=== PATIENT | female | born 1970 | race Caucasian/White ===

== ENCOUNTER 2017-04-11 17:52 | Inpatient (IN) | payer OTHER ==
[~2017-04-11] VITALS: Ht 170.2 cm; Wt 95.2 kg
--- NOTE | 2017-04-11 18:29 | DIAGNOSTIC IMAGING REPORT ---
PROCEDURE: CT HEAD WITHOUT CONTRAST INDICATION: STROKE TECHNIQUE: Axial CT images were acquired through the head. Coronal and sagittal reformations were created. COMPARISON: None. FINDINGS: Mildly expansile area of hypodensity involving the right anterior limb internal capsule, caudate head, basal ganglia and inferior frontal lobe. There is slight mass effect and effacement of the anterior horn right lateral ventricle but no midline shift. No evidence of intraparenchymal, intraventricular, or extraaxial hemorrhage. No hydrocephalous. No significant atherosclerotic calcification. The calvarium is intact. The paranasal sinuses and mastoid air cells are normally aerated. The extracranial soft tissues and orbits are normal. IMPRESSION: 1. Acute ischemic infarct involving right caudate head, basal ganglia, internal capsule, and inferior frontal lobe. 2. No evidence of hemorrhage. 3. Findings discussed with Dr. David at [address] scans at this facility use dose modulation, iterative reconstruction, and/or weight-based dosing when appropriate to reduce radiation dose to as low as reasonably achievable.
--- NOTE | 2017-04-11 18:44 | DIAGNOSTIC IMAGING REPORT ---
PROCEDURE: XR CHEST 1 VIEW INDICATION: STROKE SYMPTOMS TECHNIQUE: Single view chest. 1831 hours COMPARISON: None FINDINGS: The cardiomediastinal contour and central vasculature are normal. The lungs are clear without focal consolidation, pleural effusion or pneumothorax. The osseous structures are intact. IMPRESSION: 1. No evidence of acute cardiopulmonary disease.
--- NOTE | 2017-04-11 19:48 | ED CLINICAL REPORT ---
Clinical Report - Physicians/Mid Levels [facility] [address] [place] [address] 04/11/2017 17:53 Patient: TOM JIMENEZ Time Seen: 1803. Arrived- By private vehicle. Historian- patient. HISTORY OF PRESENT ILLNESS Chief Complaint: WEAKNESS, FACIAL DROOP and IMPAIRED SPEECH. This started yesterday, patient was last known well (yesterday) and is still present but is improving. It was abrupt in onset and has been constant but is not gone now. The patient has had weakness. She has had difficulty with speech. She has had difficulty walking. At its maximum deficit described as moderate. When seen in the E.D.,deficit described as moderate. No dizziness, altered mental status, seizure or blackouts. Usually is alert and oriented X3 and has normal mobility. Similar symptoms previously: Several times. ( resolved spontaneously after drinking juice. thought it was due to low blood sugar. did not feel it was a stroke.). Recent medical care: Not recently seen/assessed. REVIEW OF SYSTEMS No chest pain or difficulty breathing. She has had skin rash. All systems otherwise negative, except as recorded above. PAST HISTORY See nurses notes. Medications: None. Allergies: No Known Drug Allergy. SOCIAL HISTORY Never smoker. No alcohol use or drug use. No recent travel. Is a local resident. ADDITIONAL NOTES The nursing notes have been reviewed. PHYSICAL EXAM Vital Signs: 04/11/2017 18:00 BP: 133/73. HR: 65. RR: 16. O2 saturation: 100%. Temp: 98.1 F. Blood pressure normal. Oxygen saturation normal. Appearance: Alert. No acute distress. (non-toxic). Head: Head atraumatic. Eyes: Pupils equal, round and reactive to light. ENT: Normal ENT inspection. Airway intact. Pharynx normal. Neck: Normal inspection. Neck supple. No meningeal signs. CVS: Normal heart rate and rhythm. Heart sounds normal. Pulses normal. Respiratory: No respiratory distress. Breath sounds normal. Abdomen: Soft and nontender. No organomegaly. Skin: Skin warm and dry. Normal skin color. No rash. Normal skin turgor. Extremities: Extremities exhibit normal ROM. No lower extremity edema. Neuro: Alert. Oriented X 3. Expressive aphasia (some difficulty with word findings and mixing up with words.). Mood/affect normal. No dysphasia or dysarthria. Cranial nerves normal (as tested). No cerebellar findings. No abnormal finger-nose test. Normal gait. No sensory deficit. Reflexes normal. (4+/5 strength to the left upper extremity. slight facial droop to the left. no drift.). LABS, X-RAYS, AND EKG Chest X-ray: (PROCEDURE: XR CHEST 1 VIEW INDICATION: STROKE SYMPTOMS TECHNIQUE: Single view chest. 1831 hours COMPARISON: None FINDINGS: The cardiomediastinal contour and central vasculature are normal. The lungs are clear without focal consolidation, pleural effusion or pneumothorax. The osseous structures are intact. IMPRESSION: 1. No evidence of acute cardiopulmonary disease.). Views: AP (portable). The X-rays were independently viewed by me and interpreted by the radiologist. The X-rays were discussed with the radiologist (via pacs). CTA Head: PROCEDURE: CTA HEAD AND NECK INDICATION: Acute CVA. TECHNIQUE: 114 ml of Isovue 370 injected intravenously and axial images were obtained from the vertex through the upper mediastinum with 3D sagittal and coronal MIP reconstructions. COMPARISON: Head CT 04/11/2017. FINDINGS: Again seen is the acute CVA involving the right caudate head, basal ganglia, internal capsule and inferior frontal lobe with mild compression of the right frontal. AORTIC ARCH: Normal. RIGHT CAROTID SYSTEM: Normal. LEFT CAROTID SYSTEM: Normal. VERTEBROBASILAR SYSTEM: Normal. 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 INTRACRANIAL POSTERIOR CIRCULATION: Normal IMPRESSION: 1. 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 Head CTA performed with contrast. The study was independently viewed by me and interpreted by the radiologist. The study was discussed with the radiologist (via phone and pacs). CT Head: (PROCEDURE: CT HEAD WITHOUT CONTRAST INDICATION: STROKE TECHNIQUE: Axial CT images were acquired through the head. Coronal and sagittal reformations were created. COMPARISON: None. FINDINGS: Mildly expansile area of hypodensity involving the right anterior limb internal capsule, caudate head, basal ganglia and inferior frontal lobe. There is slight mass effect and effacement of the anterior horn right lateral ventricle but no midline shift. No evidence of intraparenchymal, intraventricular, or extraaxial hemorrhage. No hydrocephalous. No significant atherosclerotic calcification. The calvarium is intact. The paranasal sinuses and mastoid air cells are normally aerated. The extracranial soft tissues and orbits are normal. IMPRESSION: 1. Acute ischemic infarct involving right caudate head, basal ganglia, internal capsule, and inferior frontal lobe. 2. No evidence of hemorrhage.). The study was independently viewed by me and interpreted by the radiologist. The study was discussed with the radiologist (via phone and pacs). Laboratory Tests: CBC w Diff: (SHAHEEN: 04/11/2017 18:35) ( MsgRcvd 04/11/2017 18:53) Final results Test Result Flag Units (Reference) WHITE BLOOD COUNT 8.7 K/uL (4.5-11.5) RED BLOOD COUNT 4.10 M/uL (4.00-5.20) HEMOGLOBIN 11.6 L gm/dL (12.0-16.0) HEMATOCRIT 35.4 L % (36.0-46.0) MEAN CELL VOLUME 86 fL (80-100) MEAN CORPUSCULAR HGB 28 pg (26-34) MEAN CORPUSCULAR HGB CONC 33 g/dL (31-37) RED CELL DISTRIBUTION WIDTH 13.4 % (11.6-14.8) PLATELET COUNT 288 K/uL (150-400) NEUTROPHIL % 67.9 % (50-75) LYMPH % 22.9 L % (25-40) MONO % 6.7 % (3-14) EOSINOPHIL % 2.0 % (0-4) BASOPHIL % 0.5 % (0-2) PT with INR: (SHAHEEN: 04/11/2017 18:35) ( MsgRcvd 04/11/2017 19:00) Final results Test Result Flag Units (Reference) INR 1.1 (0.8-1.2) Low Intensity Therapy: INR 1.5-2.0 PT range 18.5-23.1Mod.Intensity Therapy: INR 2.0-3.0 PT range 23.1-31.5High Intensity Therapy: INR 2.5-3.5 PT range 27.4-35.5High Intensity Therapy 2: INR 3.0-4.0 PT range 31.5-39.3 APTT 28 SECONDS (24-34) FIBRINOGEN 282 mg/dL (193-455) D-DIMER QUANTITATIVE < 0.27 L ug/mLFEU (0.27-0.52) The primary value of this quantitative assay relates toits negative predictive value (i.e. exclusion) of pulmonaryembolism/deep vein thrombosis/DIC.Elevated levels of d-dimer may also occur with:, age, cancer, inflammation, liver disease,post-op, infection, hematoma, coronary disease, peripheralarteriopathy, bleeding disorders and thrombolytic treatment.Results should be correlated with other clinical andradiological data.Testing Methodology: Latex Immunoassay CMP: (SHAHEEN: 04/11/2017 18:35) ( MsgRcvd 04/11/2017 19:01) Final results Test Result Flag Units (Reference) GLUCOSE 143 H mg/dL (70-110) BUN 10 mg/dL (7-18) CREATININE 0.7 mg/dL (0.6-1.3) Estimated GFR >60 mL/min Estimated GFR- >60 mL/min Note: Persistent reduction over 3 months in eGFR<60 mL/min/1.73 m2 defines CKD. Patients with eGFR values>=60 mL/min/1.73 m2 may also have CKD if evidence ofpersistent proteinuria. Additional information may be foundat [email or web address]. SODIUM 143 mmol/L (136-145) POTASSIUM 3.7 mmol/L (3.5-5.1) CHLORIDE 106 mmol/L (98-107) CARBON DIOXIDE 26 mmol/L (21-32) CALCIUM 8.6 mg/dL (8.5-10.1) TOTAL PROTEIN 7.1 g/dL (6.4-8.2) ALBUMIN 3.3 g/dL (3.3-5.0) BILIRUBIN, TOTAL 0.8 mg/dL (0.0-1.0) ALKALINE PHOSPHATASE 81 U/L (46-116) AST (SGOT) 10 L U/L (15-37) ALT (SGPT) 20 U/L (12-78) . PROGRESS AND PROCEDURES Course of Care: the patient is a pleasant 46-year-old female with past medical history significant for bariatric surgery and resolved diabetes and high cholesterol presents for evaluation of left-sided weakness. Differential diagnosis at this time includes acute CVA either hemorrhagic or ischemic. Patient reports slight does not meet criteria for TPA because of her symptoms onset of yesterday. Patient appears nontoxic and in no acute distress. Because of the patient's time course, patient was not called as a code stroke. CT scanwas noted for the significant findings above. I was able to walk over to the CT scanner while the patient was obtaining her scan to the findings. Consult was placed to stroke neural for the patient's symptoms. We are currently awaiting their recommendations. Laboratory studies are noted to be unremarkable. Patient without any significant changes from her initial presentation. Stroke neural was able to recommended the patient be started on full dose aspirin. Also recommended to have a CTA of the patient's head and neck. patient is to be admitted for stroke workup including a cardiac echo carotid Doppler, and MRI. Patient is also to be started on full dose aspirin as well as statin therapy. I reviewed had noted that they will contact us once they had reviewed the patient's CTA. spoke to the hospitalist who will accept the patient. No further recommendations. Patient wasadmitted to hospital floor without further competition or delay. No acute changes of the patient's neuro status. Was able to speak to the stroke team after the patient was admitted to the hospital. Recommended patient also be started on Plavix with a loading dose of 300 mg. Then the patient is to be on 75 mg of Plavix for 3 months. Phone number to contact them for clinic follow-up was also provided. Patient is a follow-up with them in clinic in 3 months. The clinic number is [phone]. Patient is to be continued on full dose aspirin therapy throughout this time. Was able to relay this information to the hospitalist. There is also fax number that was left to help with the social worker clinical and dispositioning the patient. This number is [phone] appreciates stroke neuro's recommendations and help with the patient's care. Critical care performed (60 minutes). Time is exclusive of separately billable procedures. Time includes: direct patient care, patient reassessment, coordination of patient care, interpretation of data (laboratory data and chest xrays), review of patient's medical records, medical consultation, family consultation regarding treatment decisions and documentation of patient care. Consult obtained. stroke neuro. Disposition: Observation in Acute Care. (Electronically signed by Rolando David Dr. 04/11/2017 22:39)
--- NOTE | 2017-04-11 19:49 | ED NURSING NOTES ---
Clinical Report - Nurses [facility] [address] [place] [address] 04/11/2017 17:53 Patient: TOM JIMENEZ TRIAGE Triage time 1750. Acuity: LEVEL 3. Chief Complaint: IMPAIRED SPEECH and FACIAL DROOP. Alert. No acute distress. --18:03 Aminah Sifuentes 18:00 04/11/17. BP: 133/73. HR: 65. RR: 16. O2 saturation: 100%. Temp: 98.1 F. Pain level now 0/10. --18:03 Aminah Sifuentes. Weight: 95 kg. Height/Length: 67 inches. BMI: 32.8. --18:00 Aminah Sifuentes. Medications None. --18:01 Aminah Sifuentes. Allergies No Known Drug Allergy. --18:02 Aminah Sifuentes. History Arrived by private vehicle. Historian: patient. Accompanied by family. This started today. Unknown when patient was last known well. Onset. This is a recurrent problem. (awoke with it). ( fatigue). 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 SOCIAL HX: Never smoker. Occasional alcohol use. History of drug use: marijuana. 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 --18:07 Aminah Sifuentes. ADDITIONAL SURGERIES: Lap sleeve. --18:02 Aminah Sifuentes. Assessment The patient states feels better. --18:03 Aminah Sifuentes. Interventions ID band on patient. To treatment room. --18:03 Aminah Sifuentes. PHYSICAL ASSESSMENT Ambulatory to room. Baseline functional status: usually alert, oriented x4 and cooperative. Verbal response: usually clear and appropriate. Motor response: usually steady gait and moves all extremities equally GENERAL / NEURO / PSYCH: Awake. Oriented X 4. Alert. Appears anxious. Speech normal. Mood/affect normal. Moves all extremities equally. No motor deficit. No sensory deficit. HEENT: No facial asymmetry noted. Pupils equal, round and reactive to light. Pharynx within normal limits. RESPIRATORY: Breath sounds within normal limits. Respirations not labored. CVS: Normal sinus rhythm noted. Capillary refill less than 2 seconds. SKIN: Skin is intact, warm and dry. --18:05 Aminah Sifuentes. NURSING PROGRESS NOTES Reassurance given. Bed placed in lowest position. Brakes of bed on. Patient ready for evaluation- chart flagged. --18:05 Aminah Sifuentes 18:38 04/11/2017 Site #1 started via IV in the right antecubital space with an 20g angiocath, with aseptic technique and good blood return; one attempt. Blood drawn: rainbow set. Labeled in the presence of the patient and sent to the lab. Saline lock flushed with 10 mL saline. --18:38 Aminah Sifuentes ( BSG 144). --18:43 Aminah Sifuentes EKG time: (18:40). EKG was performed by a tech and shown to the ED physician. --18:45 Diya Aguilera 18:49 04/11/17. BP: 149/70. HR: 65. RR: 16. O2 saturation: 98%. --18:49 Aminah Sifuentes Monitoring of patient in place. Overall patient status is the same- she states feels the same. Patient and family informed about reason for wait. Patient waiting for lab and radiology results. --18:49 Aminah Sifuentes ( Neuro- Pt feels extreme fatigue still, also feels her speech is still not quite right, ADAMS =, small left facial droop per , no changes since triage). GENERAL / NEURO / PSYCH: Alert. Appears in no acute distress. Oriented X 4. She is cooperative. RESPIRATORY: Respirations not labored. Chest nontender. Breath sounds normal. CVS: Normal sinus rhythm noted. Capillary refill less than 2 seconds. GI / : Abdomen soft and nontender. SKIN: Mucous membranes are pink. Skin is warm and dry. --19:06 Aminah Sifuentes 19:22 04/11/2017 Aspirin PO 325 mg given. Allergies verified and confirmed 5 rights. --19:22 Aminah Sifuentes ( No changes in neuro assessment, pt resting quietly, no complaints, remains at bedside). --20:16 Aminah Sifuentes 20:12 04/11/17. BP: 159/72. HR: 56. RR: 16. O2 saturation: 98%. --20:16 Aminah Sifuentes. DISPOSITION / DISCHARGE Condition at departure: unchanged and stable. Admitted. Report was given to a nurse via a phone call. Report included patient's care, treatment, medications, reviewed medication reconcilliation, and condition (including any recent changes or anticipated changes). All questions were answered. Report was acknowledged and care was transferred. Bed obtained and ready (203B). --20:49 Aminah Sifuentes. Locked/Released at 04/11/2017 20:55 by Aminah Sifuentes,
--- NOTE | 2017-04-11 19:49 | ED ORDER SUMMARY ---
..... Patient: TOM JIMENEZ OrderSheet [facility] VisitID: [id number] [place] [address] 46y, F Registration Date/Time: 04/11/2017 ORDER SHEET Weight: 95.0 kg Allergies: No Known Drug Allergy GENERAL ORDERS: CT Head wo Cont Urgent (18:04 04/11/2017 Alyce Suresh) (Ack 18:23 Travis) (19:05 Ivon) Chest 1V Urgent (18:16 04/11/2017 Alyce Suresh) (Ack 18:23 Travis) (18:34 Ivon) Staff Veterinarian (Continuous) (neuro symptoms) (18:16 04/11/2017 Alyce Suresh) (Ack 18:23 Travis) (18:24 EBondimitrios) Stroke Panel Stat (18:17 04/11/2017 Alyce Suresh) (Ack 18:23 Travis) (18:38 EBonham) EKG - ER Stat (18:17 04/11/2017 Alyce Suresh) (18:40 Travis) Pulse oximeter (18:17 04/11/2017 Alyce Suresh) (Ack 18:23 Travis) (18:24 EBonham) POC Glucose (18:17 04/11/2017 Alyce Suresh) (Ack 18:23 Travis) (18:43 EBonham) UA-Culture if indicated Urgent (18:17 04/11/2017 Alyce Suresh) (Ack 18:23 Travis) CTA Head and Neck (No) (gfr > 60) Urgent (19:32 04/11/2017 Alyce Suresh) (Ack 19:35 Jourdan) (20:25 Ivon) Urine Urgent (19:33 04/11/2017 Alyce Suresh) (Ack 19:35 Jourdan) MEDICATION ORDERS: Aspirin PO 325 mg (Do not crush or chew, NOW) (19:09 04/11/2017 Alyce Suresh) (19:22 EBonham) IV FLUIDS: IV Saline Lock (18:17 04/11/2017 Alyce Suresh) (18:38 EBonham) ORDER SHEET NOTES: [Electronically signed by Aminah Sifuentes (20:55 04/11/2017)] [Electronically signed by Rolando David Dr. (22:39 04/11/2017)] [Electronically locked/signed by Aminah Sifuentes (20:55 04/11/2017)]
--- NOTE | 2017-04-11 19:49 | ED ORDER SUMMARY ---
..... Patient: TOM JIMENEZ OrderSheet [facility] VisitID: [id number] [place] [address] 46y, F Registration Date/Time: 04/11/2017 ORDER SHEET Weight: 95.0 kg Allergies: No Known Drug Allergy GENERAL ORDERS: CT Head wo Cont Urgent (18:04 04/11/2017 Alyce Suresh) (Ack 18:23 Travis) (19:05 Ivon) Chest 1V Urgent (18:16 04/11/2017 Alyce Suresh) (Ack 18:23 Travis) (18:34 Ivon) Cylinder Tester (Continuous) (neuro symptoms) (18:16 04/11/2017 Alyce Suresh) (Ack 18:23 Travis) (18:24 EBondimitrios) Stroke Panel Stat (18:17 04/11/2017 Alyce Suresh) (Ack 18:23 Travis) (18:38 EBonham) EKG - ER Stat (18:17 04/11/2017 Alyce Suresh) (18:40 Travis) Pulse oximeter (18:17 04/11/2017 Alyce Suresh) (Ack 18:23 Travis) (18:24 EBonham) POC Glucose (18:17 04/11/2017 Alyce Suresh) (Ack 18:23 Travis) (18:43 EBonham) UA-Culture if indicated Urgent (18:17 04/11/2017 Alyce Suresh) (Ack 18:23 Travis) CTA Head and Neck (No) (gfr > 60) Urgent (19:32 04/11/2017 Alyce Suresh) (Ack 19:35 Jourdan) (20:25 Ivon) Urine Urgent (19:33 04/11/2017 Alyce Suresh) (Ack 19:35 Jourdan) MEDICATION ORDERS: Aspirin PO 325 mg (Do not crush or chew, NOW) (19:09 04/11/2017 Alyce Suresh) (19:22 EBonham) IV FLUIDS: IV Saline Lock (18:17 04/11/2017 Alyce Suresh) (18:38 EBonham) ORDER SHEET NOTES: [Electronically signed by Aminah Sifuentes (20:55 04/11/2017)] [Electronically signed by Rolando David Dr. (22:39 04/11/2017)] [Electronically locked/signed by Aminah Sifuentes (20:55 04/11/2017)]
--- NOTE | 2017-04-11 20:30 | DIAGNOSTIC IMAGING REPORT ---
PROCEDURE: CTA HEAD AND NECK INDICATION: Acute CVA. TECHNIQUE: 114 ml of Isovue 370 injected intravenously and axial images were obtained from the vertex through the upper mediastinum with 3D sagittal and coronal MIP reconstructions. COMPARISON: Head CT 04/11/2017. FINDINGS: Again seen is the acute CVA involving the right caudate head, basal ganglia, internal capsule and inferior frontal lobe with mild compression of the right frontal. AORTIC ARCH: Normal. RIGHT CAROTID SYSTEM: Normal. LEFT CAROTID SYSTEM: Normal. VERTEBROBASILAR SYSTEM: Normal. 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 INTRACRANIAL POSTERIOR CIRCULATION: Normal IMPRESSION: 1. 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 Results discussed with Dr. David at 08:23 p.m., [place] Standard Time All CT scans at this facility use dose modulation, iterative reconstruction, and/or weight-based dosing when appropriate to reduce radiation dose to as low as reasonably achievable.
[2017-04-11 21:12] VITALS: BP 148/85
--- NOTE | 2017-04-11 22:00 | History & Physical Report ---
Admission Admit Date 04/11/17 Information Source Information Source: Self Reliability: Good History Chief Complaint left sided facial droop and weakness History of Present Illness Patient is a 46 year old woman who had been in her usual state of health when she began to have periodic times of dysarthria and left sided facial droop. Patient claims that approximately 4 months back she noticed there were times where she had a sudden onset of inability to speak or severly slurred speech. All these episodes were self limiting and would resolve spontaneously. During these times the patient would feel as if her tongue was heavy and her lips would not move appropriately. These episdoes would last minutes to hours and occured approximately 3 times. The worst episoded occured today, which the patient woke up and was found to have a significant left sided facial droop. She became concerned that something larger was at play and decided to come to the ER. Patient additonally noticed that she had left sided numbness. Pateint arrived to the ER where the patient was found to have Acute ischemic infarct involving right caudate head, basal ganglia, internal capsule, and inferior frontal lobe. Given the time of onset of symptoms it was too late for TPA. Patient will rather be admitted for stroke work up. Patient History 1. Cerebrovascular accident (CVA) with involvement of left side of body 2. 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 Patient lives with her and children and manages all her adls independtly. Patient does not smoke, she drinks socially and uses marijuana occasionally. Family History Family history was reviewed; no changes noted. Medications and Allergies Medications Home Medications None Current Medications Sig/Re Start time Last Medication Dose Route Stop Time Status Admin Clopidogrel Bisulfate 75 MG DAILY 04/12 1900 AC PO Atorvastatin Calcium 80 MG QPM 04/12 1800 AC PO Pantoprazole Sodium 40 MG DAILY@0600 04/12 0600 AC IV Acetaminophen 650 MG Q6H PRN 04/110 AC PO Allergies Coded Allergies: NKA (04/11/17) Review of Systems Constitutional Denies: Fever, Chills, Sweats, Weakness, Malaise, Other. Eyes Denies: Pain, Vision Change, Conjunctival Inflammation, Eyelid Inflammation, Redness, Other. ENT Denies: Ear Pain, Ear Discharge, Nose Pain, Nasal Discharge, Nasal Congestion, Mouth Pain, Mouth Swelling, Throat Pain, Throat Swelling, Other. Respiratory Denies: Cough, Dry, SOB w/exertion, Wheezing, Hemoptysis, Pleuritic Pain, Sputum , Other. Cardiovascular Denies: Chest Pain, Palpitations, Orthopnea, PND, Edema, Light-headedness, Other. Gastrointestinal Denies: Nausea, Vomiting, Abdominal Pain, Diarrhea, Constipation, Melena, Hematochezia, Other. Genitourinary Denies: Dysuria, Frequency, Incontinence, Hematuria, Retention, Other. Musculoskeletal Denies: Neck Pain, Shoulder Pain, Arm Pain, Back Pain, Hand Pain, Leg Pain, Foot Pain, Other. Skin Denies: Rash, Lesions, Jaundice, Bruising, Other. Neurological Weakness, Numbness, Change in speech. Denies: Incoordination, Confusion, Seizures, Other. Physical Exam Vital Signs / I&Os Vital Signs Date Time Temp Pulse Resp B/P Pulse O2 O2 Flow FiO2 Ox Delivery Rate 04/12 0234 97.5 63 18 162/96 100 Room Air 04/12 0029 Room Air 04/11 2239 97.7 76 18 150/93 99 Room Air 04/11 2112 98.2 60 18 148/85 100 Room Air I&O 04/11 0800 04/11 1600 04/12 0000 Intake Total 250 Output Total 0 Balance 250 General Appearance Alert, Oriented X3, No acute distress HEENT Atraumatic, Moist mucous membranes Lungs Clear to auscultation Cardiovascular Regular rate and rhythm, Normal S1 and S2, No murmurs, gallops, rubs Abdomen Normal bowel sounds, Soft, No guarding, No rebound Extremities No clubbing, No edema, Normal pulses, No tenderness, Strength = upper ext's, Strength = lower ext's, Karis's sign negative Skin No Breakdown Neurological Normal gait, Normal speech, Normal tone, Reflexes 2+ and equal, Cranial nerves intact, Strength 5/5 x4 ext's, No lateralizing signs Psych/Mental Status Mood normal LAB Results Laboratory Tests 04/11 1835 Chemistry Plasma Sodium (136 - 145 mmol/L) 143 Plasma Potassium (3.5 - 5.1 mmol/L) 3.7 Plasma Chloride (98 - 107 mmol/L) 106 CO2 (Enzymatic) (21 - 32 mmol/L) 26 BUN (7 - 18 mg/dL) 10 Creatinine (0.6 - 1.3 mg/dL) 0.7 Est GFR ( Amer) (mL/min) >60 Est GFR (Non-Af Amer) (mL/min) >60 Glucose (70 - 110 mg/dL) 143 Plasma Calcium (8.5 - 10.1 mg/dL) 8.6 Total Bilirubin (0.0 - 1.0 mg/dL) 0.8 AST (15 - 37 U/L) 10 ALT (12 - 78 U/L) 20 Alkaline Phosphatase (46 - 116 U/L) 81 Total Protein (6.4 - 8.2 g/dL) 7.1 Albumin (3.3 - 5.0 g/dL) 3.3 Coagulation INR (0.8 - 1.2) 1.1 APTT (24 - 34 SECONDS) 28 Fibrinogen (193 - 455 mg/dL) 282 D-Dimer, Quantitative (0.27 - 0.52 ug/mLFEU) < 0.27 Hematology WBC (4.5 - 11.5 K/uL) 8.7 RBC (4.00 - 5.20 M/uL) 4.10 Hgb (12.0 - 16.0 gm/dL) 11.6 Hct (36.0 - 46.0 %) 35.4 MCV (80 - 100 fL) 86 MCH (26 - 34 pg) 28 RDW (11.6 - 14.8 %) 13.4 Neut % (Auto) (50 - 75 %) 67.9 Lymph % (Auto) (25 - 40 %) 22.9 [place] % (Auto) (3 - 14 %) 6.7 Eos % (Auto) (0 - 4 %) 2.0 Baso % (Auto) (0 - 2 %) 0.5 Plt Count, EDTA (150 - 400 K/uL) 288 PUBS MCHC (31 - 37 g/dL) 33 Assessment and Plan Problem List 1. Cerebrovascular accident (CVA) with involvement of left side of body Plan - pt has evidence of acute stroke - CT shows Acute ischemic infarct involving right caudate head, basal ganglia, internal capsule, and inferior frontal lobe. - patient had a CTA which showed the presence of severe right MCA narrowing which can be a culprit in this case - will proceed with the rest of the cva work up including MRI head and neck, carotid ultrasound, and echo - patient will follow up with [facility] neurosurgery after discharge - pt placed on aspirin, plavix and statin 2. TIA (transient ischemic attack) Plan - suprisingly given the extent of her area of infarct the patient has no residual symptoms - will monitor the patient continuously with neuro checks - will complete cva work up
[2017-04-11 22:39] VITALS: BP 150/93; BP 160/80
--- NOTE | 2017-04-11 22:39 | ED MAR SUMMARY ---
..... Medication Administration Record [facility] [address] [place] [address] Patient: TOM JIMENEZ Visit ID: [id number] 46y, F Weight: 95.0 kg Height/Length: 67 in BMI: 32.8 ALLERGIES: No Known Drug Allergy Given 19:22 04/11/2017 Aminah Sifuentes, Medication Administered: ASPIRIN [PO], Dose: 325 mg PO. Medication Ordered: Aspirin PO 325 mg (Do not crush or chew, NOW).
--- NOTE | 2017-04-11 22:39 | ED MED RECONCILIATION SUMMARY ---
Patient: TOM JIMENEZ Medication Reconciliation Report [facility] VisitID: [id number] [address] [place] [address] 46y, F Registration Date/Time: 04/11/2017 Weight: 95.0 kg Height/Length: 67 in. BMI: 32.8 ALLERGIES: No Known Drug Allergy The patient's Home Medications are listed below: NONE. The source(s) of the original Home Medication information: Not obtained. The following Medications were given to the patient in the Emergency Department: Aspirin [PO] PO 325 mg, administered: 04/11/2017 7:22:00 PM The following Medications were prescribed to the patient: None.
--- NOTE | 2017-04-11 22:39 | ED MED RECONCILIATION SUMMARY ---
Patient: TOM JIMENEZ Medication Reconciliation Report [facility] VisitID: [id number] [address] [place] [address] 46y, F Registration Date/Time: 04/11/2017 Weight: 95.0 kg Height/Length: 67 in. BMI: 32.8 ALLERGIES: No Known Drug Allergy The patient's Home Medications are listed below: NONE. The source(s) of the original Home Medication information: Not obtained. The following Medications were given to the patient in the Emergency Department: Aspirin [PO] PO 325 mg, administered: 04/11/2017 7:22:00 PM The following Medications were prescribed to the patient: None.
--- NOTE | 2017-04-11 22:39 | ED MAR SUMMARY ---
..... Medication Administration Record [facility] [address] [place] [address] Patient: TOM JIMENEZ Visit ID: [id number] 46y, F Weight: 95.0 kg Height/Length: 67 in BMI: 32.8 ALLERGIES: No Known Drug Allergy Given 19:22 04/11/2017 Aminah Sifuentes, Medication Administered: ASPIRIN [PO], Dose: 325 mg PO. Medication Ordered: Aspirin PO 325 mg (Do not crush or chew, NOW).
[2017-04-12 02:34] VITALS: BP 162/96
[2017-04-12 06:40] VITALS: BP 129/47
--- NOTE | 2017-04-12 09:04 | Progress Note ---
Subjective General Patient is a 46 year old woman who had been in her usual state of health when she began to have periodic times of dysarthria and left sided facial droop. Patient claims that approximately 4 months back she noticed there were times where she had a sudden onset of inability to speak or severly slurred speech. All these episodes were self limiting and would resolve spontaneously. During these times the patient would feel as if her tongue was heavy and her lips would not move appropriately. These episdoes would last minutes to hours and occured approximately 3 times. The worst episoded occured today, which the patient woke up and was found to have a significant left sided facial droop. She became concerned that something larger was at play and decided to come to the ER. Patient additonally noticed that she had left sided numbness. Pateint arrived to the ER where the patient was found to have Acute ischemic infarct involving right caudate head, basal ganglia, internal capsule, and inferior frontal lobe. Given the time of onset of symptoms it was too late for TPA. Patient will rather be admitted for stroke work up. patient is doing fine, no localized weakness, no blurred visoin, no TERAN no tingling numbness, no nausea or vomiting no fever or chills Review of system: Neurologic system: Negative for localized weakness blurred vision headaches tingling numbness GI: Negative for nausea vomiting Constitutional: Negative for fever chills Physical Exam Vital Signs / I&Os Vital Signs Date Time Temp Pulse Resp B/P Pulse O2 O2 Flow FiO2 Ox Delivery Rate 04/12 0640 98.4 76 20 129/47 100 Room Air 0.0 04/12 0234 97.5 63 18 162/96 100 Room Air 04/12 0029 Room Air 04/11 2239 97.7 76 18 150/93 99 Room Air 04/11 2112 98.2 60 18 148/85 100 Room Air I&O 04/12 0000 04/11 1600 04/11 0800 Intake Total 250 Output Total 0 Balance 250 General Appearance Alert, Oriented X3 Lungs Clear to auscultation Neck Supple Cardiovascular Regular rate and rhythm, Normal S1 and S2, No murmurs, gallops, rubs Abdomen Normal bowel sounds, Soft, No tenderness Extremities No edema Skin No Rashes Neurological Normal exam, Normal gait, Normal tone, Reflexes 2+ and equal, Cranial nerves intact LAB Results Laboratory Tests 04/12 04/11 0545 1835 Chemistry Plasma Sodium (136 - 145 mmol/L) 141 143 Plasma Potassium (3.5 - 5.1 mmol/L) 3.7 3.7 Plasma Chloride (98 - 107 mmol/L) 107 106 CO2 (Enzymatic) (21 - 32 mmol/L) 26 26 BUN (7 - 18 mg/dL) 8 10 Creatinine (0.6 - 1.3 mg/dL) 0.7 0.7 Est GFR ( Amer) (mL/min) >60 >60 Est GFR (Non-Af Amer) (mL/min) >60 >60 Glucose (70 - 110 mg/dL) 108 143 Plasma Calcium (8.5 - 10.1 mg/dL) 8.5 8.6 Plasma Magnesium (1.8 - 2.4 mg/dL) 2.2 Total Bilirubin (0.0 - 1.0 mg/dL) 0.8 0.8 AST (15 - 37 U/L) 10 10 ALT (12 - 78 U/L) 19 20 Alkaline Phosphatase (46 - 116 U/L) 77 81 Total Protein (6.4 - 8.2 g/dL) 6.7 7.1 Albumin (3.3 - 5.0 g/dL) 3.1 3.3 Coagulation INR (0.8 - 1.2) 1.1 APTT (24 - 34 SECONDS) 28 Fibrinogen (193 - 455 mg/dL) 282 D-Dimer, Quantitative (0.27 - 0.52 ug/mLFEU) < 0.27 Hematology WBC (4.5 - 11.5 K/uL) 8.9 8.7 RBC (4.00 - 5.20 M/uL) 4.03 4.10 Hgb (12.0 - 16.0 gm/dL) 11.4 11.6 Hct (36.0 - 46.0 %) 34.5 35.4 MCV (80 - 100 fL) 86 86 MCH (26 - 34 pg) 28 28 RDW (11.6 - 14.8 %) 12.9 13.4 Neut % (Auto) (50 - 75 %) 61.9 67.9 Lymph % (Auto) (25 - 40 %) 27.6 22.9 [place] % (Auto) (3 - 14 %) 7.3 6.7 Eos % (Auto) (0 - 4 %) 2.7 2.0 Baso % (Auto) (0 - 2 %) 0.5 0.5 Plt Count, EDTA (150 - 400 K/uL) 257 288 PUBS MCHC (31 - 37 g/dL) 33 33 Assessment and Plan Problem List 1. Cerebrovascular accident (CVA) with involvement of left side of body Plan waiting for CVA work up complete to discharge to follow up with neurosurgeon as oupt 2. TIA (transient ischemic attack) Plan symptoms resolved completely 3. Acute right MCA stroke Plan follow up with neurosugeron as outpt after discharge
[2017-04-12 10:58] VITALS: BP 159/102
[2017-04-12 14:19] VITALS: BP 153/88
--- NOTE | 2017-04-12 16:11 | DIAGNOSTIC IMAGING REPORT ---
PROCEDURE: MR BRAIN W/WO CONTRAST INDICATION: stroke TECHNIQUE: Multiplanar multisequence MRI imaging of the brain without contrast. Post administration of ProHance gadolinium based IV contrast, three plane T1 fat sat sequences were obtained. COMPARISON: None. FINDINGS: There is acute restricted diffusion involving the right medial deep townsend and white matter tracts including lateral basal ganglia, caudate nucleus, anterior limb of the internal capsule, and anterior external capsule. Edema causes mass effect and slight effacement of the anterior horn of the right lateral ventricle. There is a punctate focus of T2 signal in the right parietal white matter (series 4 image 13), and two in the right lateral frontal subcortical in the right white matter (series 4 image 15). There is also one in the right paramedian frontal white matter. There is a linear shaped focus of T2 signal in the right jarquin radiata. Streak-like hyperintensity through the right posterior temporal parietal white matter (series 6 image 12) without corresponding restricted diffusion or enhancement. Slight gliosis/white matter volume loss without focal cortical volume loss. No evidence of acute or chronic hemorrhage. No midline shift. Postcontrast, there is minor diffuse enhancement over the ischemic area of compared to the rest of the parenchyma, and flow in the middle cerebral arteries. Flow voids through the right M1 segment is less prominent compared to the contralateral side. Ventricles and basal cisterns are otherwise normal. Normal signal in the visible bones. The sinuses are normally aerated. Visible extracranial soft tissues including the orbits are normal. IMPRESSION: 1. Acute ischemic infarct involving lateral lenticulostriate arteries arising from the M1 segment. 2. Tiny foci of punctate restricted diffusion scattered elsewhere in subcortical white matter in right frontal and parietal regions. 3. Slight white matter signal and gliosis in the right posterior temporal parietal region suggestive of remote ischemia. 4. No evidence of hemorrhage. 5. Discussed with Dr. Sheffield.
[2017-04-12 18:19] VITALS: BP 134/77
[2017-04-12 22:24] VITALS: BP 131/74
[2017-04-13 02:24] VITALS: BP 135/74; BP 138/70
[2017-04-13 06:46] VITALS: BP 157/83
--- NOTE | 2017-04-13 07:52 | Progress Note ---
Subjective General Patient is a 46 year old woman who had been in her usual state of health when she began to have periodic times of dysarthria and left sided facial droop. Patient claims that approximately 4 months back she noticed there were times where she had a sudden onset of inability to speak or severly slurred speech. All these episodes were self limiting and would resolve spontaneously. During these times the patient would feel as if her tongue was heavy and her lips would not move appropriately. These episdoes would last minutes to hours and occured approximately 3 times. The worst episoded occured today, which the patient woke up and was found to have a significant left sided facial droop. She became concerned that something larger was at play and decided to come to the ER. Patient additonally noticed that she had left sided numbness. Pateint arrived to the ER where the patient was found to have Acute ischemic infarct involving right caudate head, basal ganglia, internal capsule, and inferior frontal lobe. Given the time of onset of symptoms it was too late for TPA. Patient will rather be admitted for stroke work up. Doing oK ambulating fine, no localized weakness, no blurred vision or facial dropp, no slurred speech, no nausea or vomiting no dyspnea or chest pain Review of system: Neurologic system: Negative for weakness lower lesion facial droop or slurred speech GI: Negative for nausea or vomiting Respiratory system: Negative for dyspnea or chest pain Physical Exam Vital Signs / I&Os Vital Signs Date Time Temp Pulse Resp B/P Pulse O2 O2 Flow FiO2 Ox Delivery Rate 04/13 0646 98.4 63 18 157/83 97 Room Air 04/13 0224 98.8 64 17 138/70 99 Room Air 04/12 2252 Room Air 04/12 2224 98.8 79 17 131/74 98 Room Air 04/12 1819 98.8 69 18 134/77 99 Room Air 04/12 1549 Room Air 0.0 04/12 1419 98.6 69 16 153/88 99 Room Air 0.0 04/12 1058 99.0 71 18 159/102 95 Room Air 0.0 I&O 04/13 0000 04/12 1600 04/12 0800 Intake Total 240 330 375 Output Total 200 425 750 Balance 40 -95 -375 General Appearance No acute distress Lungs Clear to auscultation Neck Supple Cardiovascular Regular rate and rhythm, Normal S1 and S2, No murmurs, gallops, rubs Abdomen Normal bowel sounds, Soft, No tenderness Extremities No edema Skin No Rashes Neurological Normal tone, Cranial nerves intact, Strength 5/5 x4 ext's Assessment and Plan Problem List 1. TIA (transient ischemic attack) Plan continue Plavix and lipitor, no residual symptoms 2. Acute right MCA stroke Plan MRI shows stable lesion in brain 3. Cerebrovascular accident (CVA) with involvement of left side of body Plan will have Echo done tommorrow then can go home
[2017-04-13 10:48] VITALS: BP 149/87
[2017-04-13 14:21] VITALS: BP 150/67
[2017-04-13 18:51] VITALS: BP 156/82
[2017-04-13 22:31] VITALS: BP 142/73
[2017-04-14 03:16] VITALS: BP 132/70
[2017-04-14 06:47] VITALS: BP 135/80
[2017-04-14 10:23] VITALS: BP 140/81
--- NOTE | 2017-04-14 10:44 | DIAGNOSTIC IMAGING REPORT ---
REFERRING PHYSICIAN/PROVIDER: Gamaliel Sheffield MD CONSULTING SKEIN WINDING OPERATOR: Al Beal MD PROCEDURE: M-mode 2D echocardiography with spectral and color flow Doppler INDICATION: CVA Procedure: A two-dimensional transthoracic echocardiogram with color flow and Doppler was performed. The study quality was technically adequate. The patient was in normal sinus rhythm during the exam. Left Ventricle: The left ventricle is normal in size. There is mild concentric left ventricular hypertrophy. A membranous ventricular septal defect is present. The ventricular septal defect is small. Left ventricular systolic function is normal without focal wall motion abnormalities. The ejection fraction is estimated to be 60-65%. Assessment of diastolic parameters indicates normal left ventricular diastolic function and normal filling pressures. Right Ventricle: The right ventricle is normal in size and function. Atria: The left atrium is mildly dilated. The right atrium grossly appears normal in size. The interatrial septum is intact with no evidence for an atrial septal defect. Mitral Valve: The mitral valve is normal in structure and function. There is mild mitral regurgitation. Aortic Valve: The aortic valve is trileaflet. The aortic valve opens well. There is no aortic regurgitation. Tricuspid Valve: The tricuspid valve is normal in structure and function. There is a trace or physiologic amount of tricuspid regurgitation. Cannot calculate RVSP since systolic blood pressure from blood pressure cuff is not available at the time of echo study. Pulmonic Valve: The pulmonic valve is not well seen, but is grossly normal. There is no other significant valvular heart disease. Great Vessels: The aortic root is normal size. The dimensions of the ascending aorta are normal. The IVC is of normal diameter and collapses greater than 50% with a sniff. This suggests a low right atrial pressure of 3 mm Hg. Pericardium/ Pleura There is no pericardial effusion. IMPRESSION: There is mild concentric left ventricular hypertrophy. A membranous ventricular septal defect is present. The ventricular septal defect is small. Left ventricular systolic function is normal without focal wall motion abnormalities. The ejection fraction is estimated to be 60-65%. The right ventricle is normal in size and function. Cannot calculate RVSP (due to VSD) since systolic blood pressure from blood pressure cuff is not available at the time of echo study. The left atrium is mildly dilated. The right atrium grossly appears normal in size. There is mild mitral regurgitation. There is no other significant valvular heart disease. The aortic root is normal size. Overall, perimembransous VSD does not appear to be hemodynamically significant since RV function and chamber size are both normal.
[2017-04-14] MEDS ORDERED: ATORVASTATIN CA20 MG PO (12:21)
[2017-04-14] MEDS ORDERED: CLOPIDOGREL75 MG PO (12:21)
--- NOTE | 2017-04-14 20:45 | DISCHARGE SUMMARY ---
ADMIT DATE: 04/11/2017 DISCHARGE DATE: 04/14/2017 DISCHARGE DIAGNOSIS: 1. Right middle cerebral artery stenosis 2. Right CVA 3. TIA BRIEF HISTORY: This is a 46-year-old white female who was admitted on 2016. The patient started to have periodic times of dysarthria and left-sided facial droop , which has been going on for 4 months prior to admission on and off. Last one she developed sudden onset of inability to speak or slow to speak. Episodes usually are self- limited and resolved by itself. She feels heavy in her tongue and lips, hard to move the lips, which lasted from minutes to hours, 3 times in last few months. The last episode she woke up and was found that she has a significant left-sided facial droop and that made her to come to the emergency department. The patient also had left-sided numbness and was found on CT scan in the emergency department showed the patient acute ischemic infarct in the right caudate, basal ganglia and the internal capsule. Consultation through the [facility], decision was made that patient to be admitted here and to workup over here. The patient had a CTA and showed middle cerebral artery in the right side occluded. Also, patient had a followup MRI of the brain, which is stable lesion in the right side. HOSPITAL COURSE: The patient was admitted and was put on neuro check and observation with inpatient status. The patient's symptoms actually resolved quite fast before patient went to the floor. The patient remained asymptomatic during all this time and did very well, ambulating and no weakness, no slurred speech, no facial droop. The patient was able to eat and drink okay. As I mentioned before, MRI of the patient was done as a followup for a CT angiogram, which showed a stable lesion and CTA showed the middle cerebellar arteries occlusion. Echocardiogram was done today, which showed no thrombosis or no structural abnormality, with ejection fraction of 60%. The patient also was started on Plavix and atorvastatin, which she did very well on that and the patient right now is again being discharged to go home, but she is already set up to see a neurosurgeon and patient expecting a call from [facility] [place] is aware of this and aware that patient will be discharged as outpatient in [facility]. DISCHARGE INSTRUCTIONS/MEDICATIONS: Discharge medications: Plavix 75 mg daily, Lipitor 80 mg daily. The patient will follow up at [facility] with her primary care physician within 1 week.
== END 2017-04-14 13:30 | disposition home or self-care (01) | DRG 46 ==
LOC: ED SRH 17:52 → TRANS SRH 20:10 → ACUTE2 SRH 21:31
PROVIDERS: ADMIT Student in an Organized Health Care Education/Training Program
DX: I66.01 Occlusion and stenosis of right middle cerebral artery (principal)
CPT/HCPCS: 85241; 90004; 90047; 90074; 90100; 91556; 92720; 93070; 94001; 94050; 94060; 95059